=== PATIENT | female | born 1965 | race Caucasian/White ===

== ENCOUNTER → 2018-09-16 12:32 | Outpatient (CLI) | payer OTHER, SELFPAY ==
[2018-06-17 12:56] VITALS: BMI 20.1
--- NOTE | 2018-09-16 12:34 | BI_ITS ---
MAMMOGRAPHY - BILATERAL SCREENING REASON FOR EXAM: Female, 53 years old. Routine annual screening examination. PERTINENT HISTORY: Sister with breast cancer. Grandmother with breast cancer. Prior right ultrasound-guided breast biopsy. TECHNIQUE: Digital bilateral breast aditi (3D mammographic acquisition) in the CC and MLO projections. 2-D mediolateral oblique (MLO) and craniocaudad (CC) views of both breasts were obtained. CAD: Full Field Digital Mammography with Computer Added Detection was performed. COMPARISON: Comparison is made with prior study dated September 09, 2017 and prior ultrasound dated September 09, 2017. FINDINGS: Breast Composition: The breasts are heterogeneously dense, which may obscure small masses. There are no dominant masses or suspicious calcifications. A tissue clip marker is seen in the anterior mid superior portion of the right breast. Stable scattered bilateral microcalcifications. No other significant abnormalities are identified. There has been no significant change since the prior study. BI/SCREENING MAMM (CAD), BILAT IMPRESSION: Stable bilateral screening mammogram. Yearly follow-up mammogram recommended. (A) ASSESSMENT CATEGORY: BIRADS Category 2: Benign. A letter regarding these results will be sent to the patient by the facility within 30 days. Approximately 10% of breast cancers are not detected by mammography. A normal mammogram should not delay biopsy of a clinically suspicious abnormality. [id number] Electronically Signed: Milind Montanez MD at 13:25 EST Tel [phone], Service support ,
--- OUTSIDE RECORDS SUMMARY | 2018-12-18 17:38 | XMS RPT_ITS ---
:1965 Author Organization OHIP Care Team Providers Name Role Phone Lisbet TORRES (SANTOS) Attending Unavailable Lisbet TORRES (SANTOS) Referring Unavailable Lisbet TORRES (SANTOS) Attending Unavailable Gala Queen Attending Unavailable Brian Santa Primary Care Unavailable Jennifer Bee Consulting Unavailable Gala Queen Attending Unavailable Brian Santa Referring Unavailable KietBrian winn Primary Care Unavailable PROBLEMS PROBLEMS DATE TYPE CONDITION / CODE ATTENDING STATUS SOURCE 06/17/2018 Active Essential NA Active [facility] (primary) [place] hypertension / Repository I10(ICD-10) PROCEDURES PROCEDURES No Procedure Records FoundRESULTS RESULTS STEAM PRESS OPERATOR OFFICE VISIT Observed: 10/12/2018 Status: F Source: [place] RE[place] 3:02 PM [facility] [place] RE[facility]IT[facility] [address] [place] [address] OFFICE VISIT Date of Service: 06/17/18 MR#: [id number] Acct: [id number] Name: JERROD ALEMAN Rep #: [id number] : 1965 Provider: SAY Queen Age/Sex: 53/F Location[place] [facility] [place] Status: Signed with Addenda ADDENDUM by SAY Queen on 10/12/18 at 1502 Addendum entered and electronically signed by HAL Tierney 10/12/18 15:02: Rectal exam was deferred. No masses palpated Assessment AND Plan Problems 1. Encounter for gynecological examination without abnormal finding Z01.419 Plan - HAL Tierney Completed breast and pelvic exam Reviewed diet and exercise Pap 2017 Mammogram today Colonoscopy up to date RTO 1 year, prn with problems Gala Queen SEAFOOD SERVICE TEAM MEMBER 10/12/18 1502 <Electronically signed by Gala HONG> Date Gala Queen cc: * Signed Intake Vital Signs06/17/18 Height 5 ft 10 in 06/17/18 Weight: 140 lb 6 oz 06/17/18 Body Mass Index (BMI) 20.1 06/17/18 Blood Pressure 130/70 Intake Visit Reasons: ANNUAL Chief Complaint: est annual Road Engineer Required: No Is patient in pain?: No Allergies sulfamethoxazole [From Bactrim] Adverse Reaction (Verified 06/17/18 12:56) Other trimethoprim [From Bactrim] Adverse Reaction (Verified 06/17/18 12:56) Other Medications Hydrochlorothiazide [Hctz] 25 mg PO DAILY 06/21/15 [History Confirmed 06/17/18] Oxycodone HCl/Acetaminophen [Percocet 5/325] 1 - 2 tab PO Q4H PRN PRN #30 tab 06/22/15 [Rx] Is last menstrual period known: Yes Last Menstral Period: 05/23/18 Post menopausal: No Patient : No : No PFSH Medical History Hypertension (Chronic) Surgical History History of right breast biopsy (Acute) Family History Father Cancer prostate Blindness and low vision Sister Breast cancer pre breast cancer Brother Cancer Social History Smoking Status: Never smoker alcohol intake: never substance use type: does not use caffeine: No what type of physical activity do you participate in: walking seatbelt use: always do you feel safe at home: Yes additional social history: 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 DatName GA[facility]WeeksOutcome [facility] tn Unknown 1996 [facility] Unknown [facility] HPI ANNUAL: Details: JERROD ALEMAN is a 53 year old who presents for annual exam. Denies concerns Last PAP: 2017 History of abnormal PAP: no Last mammogram: 08/2017 History of abnormal mammogram: negative breast biopsy Colon cancer screenin08/2016 Negative EMB 06/2017 for menorrhagia and menses normal now. Female Reproductive History Last Menstral Period: 05/23/18 Questions: Metorrhagia: No, Sexually active: Yes, Dyspareunia: No, PCB: No ROS Const Constitutional: Denies fatigue, weight gain or weight loss Cardio Card: Denies chest pain Resp Resp: Denies cough or shortness of breath with activity GI GI: Denies abdominal pain, constipation, change in stools, vomiting or bloating : Reports as per HPI; denies urinary frequency, pelvic pain, urinary urgency, vaginal discharge, vaginal itching, urinary incontinence or difficulty urinating Exam Const General: cooperative, healthy appearing, no acute distress, well developed Orientation: alert, oriented to person, oriented to place HENOK Head: normal to inspection Neck Neck: normal visual inspection Thyroid: thyroid normal Lymphatic: no lymphadenopathy noted Chest Breast inspection: normal inspection of the breasts, normal inspection of the axillae Breast palpation: normal palpation of the breasts, normal palpation of the axillae, no axillary lymphadenopathy Resp Effort AND Inspection: normal respiratory effort GI Palpation: soft, nontender, no masses Rectal Exam: mass, deferred External Female Exam: normal external appearance, normal appearance of the urethra Urethra: normal appearance of the urethra, normal palpation Speculum Exam - Vagina: normal appearance of the vagina, normal vaginal discharge Speculum Exam - Cervix: normal appearance of the cervix Bimanual Exam- Vagina AND Uterus: normal bimanual exam, uterine size normal, uterine shape normal, uterus non-tender Bimanual Exam- Adnexa, other: normal adnexae, no adnexal masses, adnexae non-tender, pelvic support normal Pelvic Support: normal Neuro General: alert, oriented x3 Psych Affect: normal affect Assessment AND Plan Problems 1. Encounter for gynecological examination without abnormal finding Z01.419 Plan Completed breast and pelvic exam Reviewed diet and exercise Pap 2017 Mammogram today Colonoscopy up to date RTO 1 year, prn with problems Gala Queen SEAFOOD SERVICE TEAM MEMBER Coding Level of Care Code Off vis,est,prev 40-64yrs Diagnoses Encounter for gynecological examination without abnormal finding Z01.419 Gynecological examination findings: abnormal findings ABSENT 06/17/18 1616 <Electronically signed by Gala HONG> Date Gala Queen NP-C Cosigner Signature: Date (if applicable) CC: SCREENING MAMM (CAD), Observed: 09/16/2018 Status: F Source: [facility] 12:34 PM [facility] [place] REPOSITORY [facility] Imaging Services [address] [place] [id number] SCREENING MAMM (CAD), BIL MR#: [id number] Acct: [id number] Name: JERROD ALEMAN Rep #: [id number] : 1965 F 53 From: Milind Montanez MD PCP: Brian Santa MD Status: [facility] Study: SCREENING MAMM (CAD), BIL Date of Exam: 09/16/18 Exam# [id number] Ordering Dr: Gala Queen MAMMOGRAPHY - BILATERAL SCREENING REASON FOR EXAM: Female, 53 years old. Routine annual screening examination. PERTINENT HISTORY: Sister with breast cancer. Grandmother with breast cancer. Prior right ultrasound-guided breast biopsy. TECHNIQUE: Digital bilateral breast adiit (3D mammographic acquisition) in the CC and MLO projections. 2-D mediolateral oblique (MLO) and craniocaudad (CC) views of both breasts were obtained. CAD: Full Field Digital Mammography with Computer Added Detection was performed. COMPARISON: Comparison is made with prior study dated September 09, 2017 and prior ultrasound dated September 09, 2017. FINDINGS: Breast Composition: The breasts are heterogeneously dense, which may obscure small masses. There are no dominant masses or suspicious calcifications. A tissue clip marker is seen in the anterior mid superior portion of the right breast. Stable scattered bilateral microcalcifications. No other significant abnormalities are identified. There has been no significant change since the prior study. BI/SCREENING MAMM (CAD), BILAT IMPRESSION: Stable bilateral screening mammogram. Yearly follow-up mammogram recommended. (A) ASSESSMENT CATEGORY: BIRADS Category 2: Benign. A letter regarding these results will be sent to the patient by the facility within 30 days. Approximately 10% of breast cancers are not detected by mammography. A normal mammogram should not delay biopsy of a clinically suspicious abnormality. [id number] Electronically Signed: Milind Montanez MD at 13:25 EST Tel [phone], Service support , CC: SAY Queen; Brian Santa MD Cnc Field Service Engineer: Signed PROGRESS Observed: 06/23/2018 Status: COMPLETED Source: [place] 10:[address] [facility] [place] REPOSITORY O ID: [id number] Author: Lisbet Torres Service: (none) Author Type: Physician Medical Records Tech Type: Progress Notes Filed: 06/23/2018 4:46 PM Note Text: 53 year old female with c/o Follow up on BP HTN: Current meds: dyazide 37.5 Patient is compliant with meds Yes Monitors bp at home: Yes. If yes, readings: 121/74 yesterday Denies side effects: Yes. Chest pain: No. Dyspnea: No. Edema: No. Palpitations: No. Syncope: No. Headache: No. Dizziness: No. Last 3 Encounter BP Readings: Date: BP: 06/23/2018 138/86 12/11/2017 128/84[reading from BP Ruben (from Extended Vitals)[ 03/13/2017 138/78 Last 2 Encounter Wt Readings: Date: Wt: 06/23/2018 64 kg (141 lb 1.3 oz) 12/11/2017 64.9 kg (143 lb) HISTORIES FAMILY HISTORY Problem Relation Age of Onset - Hypertension Mother - Hypertension Father - Breast Cancer Paternal Grandmother - Aneurysm Maternal Grandmother - Hypertension Sister - Hypertension Brother PAST MEDICAL HISTORY Diagnosis Date - hypertension 2004 mild - Hypertension PAST SURGICAL HISTORY Procedure Laterality Date - BREAST BIOPSY Right 05/2015 - COLONOSCOP W/ OR W/O BRSH SPEC 08/29/16 Colonoscopy Social History Marital status: Spouse name: denisa Years of education: 12 Number of children: 2 Occupational History 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 Disp: 90 capsule Rfl: 1 Nonoxynol-9 (VAGINAL CONTRACEPTIVE FOAM) 12.5 % VAGINAL Foam Use vaginally. Disp: Rfl: 0 COMPOUNDED PRESCRIPTION vitamin once daily Disp: Rfl: 0 CALCIUM 600 + D 600 MG-125 UNIT TAB Take one(1) tablet two(2) times daily. Disp: otc Rfl: 0 No current facility-administered medications for this visit. BP CONTROLLED (<130/80) due on 1984 INFLUENZA(1) due on 05/30/2018 EXAM: BP 138/86 (BP Site: Right Arm, BP Position: Sitting, BP Cuff Size: Regular Adult) Pulse 62 Resp 18 Wt 64 kg (141 lb 1.3 oz) LMP 05/23/2018 BMI 19.86 kg/m? Pleasant adult woman in no acute distress. Alert and oriented all spheres. Normal affect and cognition. Speech normal. No deficits to learning or comprehension. Skin warm, dry, pink to lips and nailbeds. Normal turgor. Respirations regular and unlabored. Extrem: no clubbing, cyanosis, edema. Extremities are warm and pink with prompt capillary refill. ASSESSMENT/PLAN: 1. Essential hypertension - ICD9: 401.9, ICD10: I10 - good control - Recommended regular aerobic exercise. - Recommend home blood pressure monitoring, to bring results in on next visit - Goal of BP <130/80 - TRIAMTERENE 37.5 MG-HYDROCHLOROTHIAZIDE 25 MG CAPSULE F/u 1 year Lisbet Torres PA-C CNOV Observed: 06/23/2018 Status: COMPLETED Source: [place] 9:20 AM [facility] REPOSITORY Office Visit (FAMPWS) JERROD ALEMAN ([id number]) 1965 F Date Time Provider Department 06/23/18 9:20 AM Lisbet TORRES) FAMPWS During your visit today, we recorded the following information about you: Pulse Respiration Blood pressure Weight 62/minute 18/minute 138/86 64 kg Last Period 05/23/18 Lisbet Torres PA-C 06/23/2018 4:46 PM Signed 53 year old female with c/o Follow up on BP HTN: Current meds: dyazide 37.5 Patient is compliant with meds Yes Monitors bp at home: Yes. If yes, readings: 121/74 yesterday Denies side effects: Yes. Chest pain: No. Dyspnea: No. Edema: No. Palpitations: No. Syncope: No. Headache: No. Dizziness: No. Last 3 Encounter BP Readings: Date: BP: 06/23/2018 138/86 12/11/2017 128/84[reading from BP Ruben (from [facility] [place])[ 03/13/2017 138/78 Last 2 Encounter Wt Readings: Date: Wt: 06/23/2018 64 kg (141 lb 1.3 oz) 12/11/2017 64.9 kg (143 lb) HISTORIES FAMILY HISTORY Problem Relation Age of Onset - Hypertension Mother - Hypertension Father - Breast Cancer Paternal Grandmother - Aneurysm Maternal Grandmother - Hypertension Sister - Hypertension Brother PAST MEDICAL HISTORY Diagnosis Date - hypertension 2005 mild - Hypertension PAST SURGICAL HISTORY Procedure Laterality Date - BREAST BIOPSY Right 05/2015 - COLONOSCOP W/ OR W/O BRSH SPEC 08/29/16 Colonoscopy Social History Marital status: Spouse name: denisa Years of education: 12 Number of children: 2 Occupational History 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 Disp: 90 capsule Rfl: 1 Nonoxynol-9 (VAGINAL CONTRACEPTIVE FOAM) 12.5 % VAGINAL Foam Use vaginally. Disp: Rfl: 0 COMPOUNDED PRESCRIPTION vitamin once daily Disp: Rfl: 0 CALCIUM 600 + D 600 MG-125 UNIT TAB Take one(1) tablet two(2) times daily. Disp: otc Rfl: 0 No current facility-administered medications for this visit. BP CONTROLLED (<130/80) due on 1984 INFLUENZA(1) due on 05/30/2018 EXAM: BP 138/86 (BP Site: Right Arm, BP Position: Sitting, BP Cuff Size: Regular Adult) Pulse 62 Resp 18 Wt 64 kg (141 lb 1.3 oz) LMP 05/23/2018 BMI 19.86 kg/m? Pleasant adult woman in no acute distress. Alert and oriented all spheres. Normal affect and cognition. Speech normal. No deficits to learning or comprehension. Skin warm, dry, pink to lips and nailbeds. Normal turgor. Respirations regular and unlabored. Extrem: no clubbing, cyanosis, edema. Extremities are warm and pink with prompt capillary refill. ASSESSMENT/PLAN: 1. Essential hypertension - ICD9: 401.9, ICD10: I10 - good control - Recommended regular aerobic exercise. - Recommend home blood pressure monitoring, to bring results in on next visit - Goal of BP <130/80 - TRIAMTERENE 37.5 MG-HYDROCHLOROTHIAZIDE 25 MG CAPSULE F/u 1 year M SANTOS Parada PA-C 06/23/2018 10:53 AM Signed THE DASH DIFFERENCE High blood pressure affects 50 million Americans and is one of the leading causes or heart diseased and stroke. The eating plan shown below, from the Dietary Approaches to Stop Hypertension (DASH) study, is good news for those affected by or at risk for high blood pressure. As reported in the [place] Journal of Medicine, the DASH diet, which is low in fat and rich in low-fat milk, cheese and yogurt, fruits and vegetables, lowered blood pressure in individuals with both normal and elevated blood pressure. The use of foods lower in sodium made a slight improvement in blood pressure beyond what occurred with the low-fat dairy products, fruits and vegetables. The study was based on a 2000 calorie diet and contained the number of servings from each of the food groups shown in the chart below. For many people following the DASH eating plan can be an important and easy step in preventing or managing high blood pressure. The DASH Eating Style FOOD GROUP DAILY SERVINGS 1 SERVING EQUALS Milk and Dairy 2-3 8 oz low-fat milk 1 cup low-fat 1 ? oz low-fat cheese Fruits 4-5 1 medium fruit ? cup dried fruit ? cup frozen or canned fruit 6 oz fruit juice Vegetables 4-5 1 cup raw leafy vegetables ? cup cooked vegetables 6 oz vegetable juice Grain 7-8 1 slice bread ? cup dry or hot cereal ? cup cooked rice or pasta Meat, fish, Poultry 2 or less 3 oz cooked meat, poultry, or fish Nuts, Seeds, Dried Beans 4-5 per week 1/3 cup nuts 2 tbsp seeds ? cup cooked dried beans Sample DASH Menu Breakfast 1 cup corn flakes (with 1 tsp sugar) 8 oz low-fat milk 1 banana 1 slice whole wheat toast 1 tbsp jelly ? grapefruit Lunch 2 oz sliced turkey 1 luciana bread 1 tbsp low-fat mayonnaise ? cup fruit cocktail in light syrup Raw vegetable medley with: 3-4 sticks of each carrot and celery 2 radishes 2 loose leaf lettuce leaves Snack ? cup dried apricots ? cup mini pretzels 1/3 cup mixed nuts 1 cup flavored low-fat yogurt Dinner 3 oz grilled lean beef 1 cup scallion rice 1 cup steamed broccoli 8 oz low-fat chocolate milk Spinach salad with ? cup raw spinach 2 galvan tomatoes 2 cucumber slices 10 Ways to DASH Up Your Dining 1.) Re-think your drink! Make low-fat milk your beverage of choice: order it when dining out. 2.) Pizza, Pizza, Pizza! Combine a pre-made pizza crust with pizza sauce, shredded low-fat mozzarella and lots of vegetable toppings ? fresh tomatoes, zucchini, spinach, carrot curls, cauliflower, broccoli and artichoke hearts ? for a totally awesome creation. 3.) Start Your Day with whole grain cereal and low-fat milk. 4.) Make it with Milk! Use low-fat milk in place of water when cooking, especially with oatmeal, boxed rice and pasta dishes 5.) For That Snack Attack: Serve cereal with low-fat milk and fresh fruit. For a tangy twist, layer flavored low-fat yogurt with cereal to create yogurt sundaes. 6.) Make Super Soup! Prepare soup with low-fat milk instead of water. Add fresh, canned or frozen vegetables to prepared soups. 7.) Shake ?em Up! Create highway patrol commander drinks. Start with a cup of low-fat milk, add frozen fruit chunks and flavoring to make your own smoothie drink. 8.) Creat a Baked Potato Bar! Serve baked potatoes with a variety of toppings like low-fat cheese, chili, refried beans, salsa or broccoli. Add them up ? one meal could contain three or four vegetable servings! 9.) Encourage Big Dippers! Make a fruit dip by sprinkling cinnamon into vanilla low-fat yogurt. For a quick vegetable dip, add ranch seasoning or chopped chives to plain low-fat yogurt. 10.) Say Cheese! Top Steamed vegetables with shredded low- fat cheese. HEALTH MAINTENANCE: ? Your Body mass index is 19.86 kg/m?. (Target BMI: 19-25) ? Regular aerobic exercise, low fat diet, and periodic exams are recommended ? Living Will AND Medical Power of Manager Emergency Department recommended ? Periodic Pap smear per risk profile. ? Mammogram recommended yearly. ? Colon cancer screening by age 50 AND every 5-10 years. ? Calcium intake of 1200-1500mg elemental calcium per day and 1,000-2,000 IU of Vitamin D3/cholecalciferol daily. ? Bone mineral density (by age 65 or sooner if other risk factors for osteoporosis). IMMUNIZATIONS: ? TD at age 50 or every 10 years ? Pneumovax (between ages 50-65) ? Recommend consideration for Zostavax (shingles vaccine) in women age 60 and older. ? Yearly flu vaccine in the fall for those 50 and older LABS: ? Thyroid screening every 5 years after age 50 ? Fasting blood sugar every 3 years after age 45 ? Fasting cholesterol every five years after age 45 Referring Provider: SELF [200] Allergies As of Date: 06/23/2018 Noted Allergy Reaction BACTRIM (SULFAMETHOXAZOLE) 12/03/2009 7 - Swelling Comments: Bilateral calf pain, numbness/tingling of extremities Date Reviewed: 06/23/2018 Reviewed by: Chelsie Storey - Fully Assessed Reason for Visit: Recheck [92] Cmt: 6 month follow up- BP check Visit Diagnosis:Essential hypertension [I10] Order(s):triamterene-hydrochlorothiazide 37.5-25 mg per capsuleTake 1 capsule by mouth once daily.Disp: 90 capsuleRfl: 3 Prescriptions as of 06/23/2018 Sig: TRIAMTERENE 37.5 MG-HYDROCHLO* Take 1 capsule by mouth once * * NONOXYNOL-9 12.5 % VAGINAL FO* Use vaginally. * COMPOUNDED PRESCRIPTION vitamin once daily * CALCIUM 600 + D(3) 600 MG-125* Take one(1) tablet two(2) cori* Problem List As Of Date 06/23/2018 Noted Resolved Essential hypertension, benign [I10] INVALID FOR* More... Hypokalemia [E87.6] INVALID FOR*02/20/2017 Colon cancer screening [Z12.11] INVALID FOR*08/29/2016 Other instructions from your clinician: THE DASH DIFFERENCE High blood pressure affects 50 million Americans and is one of the leading causes or heart diseased and stroke. The eating plan shown below, from the Dietary Approaches to Stop Hypertension (DASH) study, is good news for those affected by or at risk for high blood pressure. As reported in the [place] Journal of Medicine, the DASH diet, which is low in fat and rich in low-fat milk, cheese and yogurt, fruits and vegetables, lowered blood pressure in individuals with both normal and elevated blood pressure. The use of foods lower in sodium made a slight improvement in blood pressure beyond what occurred with the low-fat dairy products, fruits and vegetables. The study was based on a 2000 calorie diet and contained the number of servings from each of the food groups shown in the chart below. For many people following the DASH eating plan can be an important and easy step in preventing or managing high blood pressure. The DASH Eating Style FOOD GROUP DAILY SERVINGS 1 SERVING EQUALS Milk and Dairy 2-3 8 oz low-fat milk 1 cup low-fat 1 ? oz low-fat cheese Fruits 4-5 1 medium fruit ? cup dried fruit ? cup frozen or canned fruit 6 oz fruit juice Vegetables 4-5 1 cup raw leafy vegetables ? cup cooked vegetables 6 oz vegetable juice Grain 7-8 1 slice bread ? cup dry or hot cereal ? cup cooked rice or pasta Meat, fish, Poultry 2 or less 3 oz cooked meat, poultry, or fish Nuts, Seeds, Dried Beans 4-5 per week 1/3 cup nuts 2 tbsp seeds ? cup cooked dried beans Sample DASH Menu Breakfast 1 cup corn flakes (with 1 tsp sugar) 8 oz low-fat milk 1 banana 1 slice whole wheat toast 1 tbsp jelly ? grapefruit Lunch 2 oz sliced turkey 1 luciana bread 1 tbsp low-fat mayonnaise ? cup fruit cocktail in light syrup Raw vegetable medley with: 3-4 sticks of each carrot and celery 2 radishes 2 loose leaf lettuce leaves Snack ? cup dried apricots ? cup mini pretzels 1/3 cup mixed nuts 1 cup flavored low-fat yogurt Dinner 3 oz grilled lean beef 1 cup scallion rice 1 cup steamed broccoli 8 oz low-fat chocolate milk Spinach salad with ? cup raw spinach 2 galvan tomatoes 2 cucumber slices 10 Ways to DASH Up Your Dining 1.) Re-think your drink! Make low-fat milk your beverage of choice: order it when dining out. 2.) Pizza, Pizza, Pizza! Combine a pre-made pizza crust with pizza sauce, shredded low-fat mozzarella and lots of vegetable toppings ? fresh tomatoes, zucchini, spinach, carrot curls, cauliflower, broccoli and artichoke hearts ? for a totally awesome creation. 3.) Start Your Day with whole grain cereal and low-fat milk. 4.) Make it with Milk! Use low-fat milk in place of water when cooking, especially with oatmeal, boxed rice and pasta dishes 5.) For That Snack Attack: Serve cereal with low-fat milk and fresh fruit. For a tangy twist, layer flavored low-fat yogurt with cereal to create yogurt sundaes. 6.) Make Super Soup! Prepare soup with low-fat milk instead of water. Add fresh, canned or frozen vegetables to prepared soups. 7.) Shake ?em Up! Create highway patrol commander drinks. Start with a cup of low-fat milk, add frozen fruit chunks and flavoring to make your own smoothie drink. 8.) Creat a Baked Potato Bar! Serve baked potatoes with a variety of toppings like low-fat cheese, chili, refried beans, salsa or broccoli. Add them up ? one meal could contain three or four vegetable servings! 9.) Encourage Big Dippers! Make a fruit dip by sprinkling cinnamon into vanilla low-fat yogurt. For a quick vegetable dip, add ranch seasoning or chopped chives to plain low-fat yogurt. 10.) Say Cheese! Top Steamed vegetables with shredded low-fat cheese. HEALTH MAINTENANCE: ? Your Body mass index is 19.86 kg/m?. (Target BMI: 19-25) ? Regular aerobic exercise, low fat diet, and periodic exams are recommended ? Living Will AND Medical Power of Manager Emergency Department recommended ? Periodic Pap smear per risk profile. ? Mammogram recommended yearly. ? Colon cancer screening by age 50 AND every 5-10 years. ? Calcium intake of 1200-1500mg elemental calcium per day and 1,000-2,000 IU of Vitamin D3/cholecalciferol daily. ? Bone mineral density (by age 65 or sooner if other risk factors for osteoporosis). IMMUNIZATIONS: ? TD at age 50 or every 10 years ? Pneumovax (between ages 50-65) ? Recommend consideration for Zostavax (shingles vaccine) in women age 60 and older. ? Yearly flu vaccine in the fall for those 50 and older LABS: ? Thyroid screening every 5 years after age 50 ? Fasting blood sugar every 3 years after age 45 ? Fasting cholesterol every five years after age 45 Prescriptions ordered this encounter Disp Refills Start End TRIAMTERENE 37.5 MG-HYDROCHLOROTHIAZ* 90 c* 3 06/23/2018 Route: ORAL Sig: Take 1 capsule by mouth once daily. Medications Discontinued During This Encounter triamterene-hydrochlorothiazide 37.5* 90 c* 1 12/11/2017 06/23/2018 Route: ORAL Sig: Take 1 capsule by mouth once daily. Disc: Reason for discontinue is not on file. Disposition: Return in about 1 year (around 06/23/2019). Follow-up and Disposition History Recorded Encounter Status:Closed by Lisbet TORRES PA-C on 06/23/18 BASIC METABOLIC PANL Collected: 06/17/2018 Status: F Source: [place] 1:[address] [facility] REPOSITORY TYPE CODE TESTS RESULT OUT OF REFERENCE UNITS RANGE LAB GLU 74-99 mg/dL High Glucose 104 Result Comment: The [place] Diabetes Association (ADA) provides guidance for cutoff values for fasting glucose and random glucose. The ADA defines fasting as no caloric intake for at least 8 hours. Fas ting plasma glucose results between 100 to 125 mg/dL indicate increased risk for diabetes (prediabetes). Fasting plasma glucose results greater than or equal to 126 mg/dL meet the criteria for diagnosis of diabetes. In the absence of unequivocal hyperglycemia, results should be confirmed by repeat testing. In a patient with classic symptoms of hyperglycemia or hyperglycemic crisis, random plasma glucose results greater than or equal to 200 mg/dL meet the criteria for diagnosis of diabetes. Reference: Standards of Medical Care in Diabetes 2016, [place] Diabetes Association. Diabetes Care. 2016.39(Suppl 1). LAB BUN 7-21 mg/dL BUN 20 LAB CRET 0.58-0.96 mg/dL Creatinine 0.84 LAB NA 136-144 mmol/L Sodium 140 LAB K 3.7-5.1 mmol/L Potassium 3.8 LAB CL 97-105 mmol/L Chloride 99 LAB CO2 22-30 mmol/L CO2 28 LAB AGAP 9-18 mmol/L Anion Gap 13 LAB CA 8.5-10.2 mg/dL Calcium, Total 9.8 LAB GFRAA eGFR- Amer. >60 LAB GFRNAA . eGFR-All Other Races >60 Result Comment: eGFR (Estimated GFR) Units of measure: mL/min/1.73 meters squared eGFR is derived from the reexpressed MDRD Study equation using the following parameters: serum creatinine, age, gender and race. The creatinine assay has been calibrated to be traceable to IDMS. An eGFR <60 mL/min/1.73m2 for >3 months is consistent with chronic kidney disease. Refer to KDOQI guidelines for clinical interpretation. In patients with unstable renal function, e.g. those with acute kidney injury, the eGFR may not accurately reflect actual GFR. Performed By: #### BMP #### [facility] [address] [place], [place] [address] PROGRESS Observed: 12/11/2017 Status: COMPLETED Source: [place] 10:[address] [facility] REPOSITORY HNO ID: [id number] Author: Lisbet Barkley (Santos) Brian Service: (none) Author Type: Physician Medical Records Tech Type: Progress Notes Filed: 12/11/2017 11:13 AM Note Text: 52 year old female with c/o follow up on BP HTN: Current meds: Triamterene/ HCTZ Patient is compliant with meds Yes Monitors bp at home: Yes. If yes, readings: BP low at home 111-145/ 65-87. Most frequent in 120/80 or below range. Denies side effects: No. Chest pain: No. Dyspnea: No. Edema: No. Palpitations: No. Syncope: No. Headache: No. Dizziness: No. Last 3 Encounter BP Readings: Date: BP: 12/11/2017 142/86 03/13/2017 138/78 03/05/2017 158/76 Last 2 Encounter Wt Readings: Date: Wt: 12/11/2017 64.9 kg (143 lb) 03/13/2017 65.3 kg (144 lb) HISTORIES FAMILY HISTORY Problem Relation Age of Onset - Hypertension Mother - Hypertension Father - Breast Cancer Paternal Grandmother - Aneurysm Maternal Grandmother - Hypertension Sister - Hypertension Brother PAST MEDICAL HISTORY Diagnosis Date - hypertension 2005 mild - Hypertension PAST SURGICAL HISTORY Procedure Laterality Date - BREAST BIOPSY Right 05/2015 - COLONOSCOP W/ OR W/O [facility] SPEC 08/29/16 Colonoscopy Social History Marital status: Spouse name: denisa Years of education: 12 Number of children: 2 Occupational History 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 Disp: Rfl: 0 CALCIUM 600 + D 600 MG-125 UNIT TAB Take one(1) tablet two(2) times daily. Disp: otc Rfl: 0 COMPOUNDED PRESCRIPTION vitamin once daily Disp: Rfl: 0 No current facility-administered medications for this visit. INFLUENZA(1) due on 05/30/2017 EXAM: BP 135/87 Pulse 80 Temp 36.5 ?C (97.7 ?F) (Tympanic) Resp 16 Wt 64.9 kg (143 lb) LMP 11/08/2017 (Approximate) BMI 20.13 kg/m2 Pleasant adult woman in no acute distress. Alert and oriented all spheres. Normal affect and cognition. Speech normal. No deficits to learning or comprehension. Skin warm, dry, pink to lips and nailbeds. Normal turgor. Respirations regular and unlabored. Extrem: no clubbing, cyanosis, edema. Extremities are warm and pink with prompt capillary refill. ASSESSMENT/PLAN: 1. Essential hypertension - ICD9: 401.9, ICD10: I10 - good control - Recommended regular aerobic exercise. - Recommend home blood pressure monitoring, to bring results in on next visit - Goal of BP <130/80 - TRIAMTERENE 37.5 MG-HYDROCHLOROTHIAZIDE 25 MG CAPSULE - BASIC METABOLIC PNL Lisbet Torres PA-C CNOV Observed: 12/11/2017 Status: COMPLETED Source: [place] 10:40 AM [facility] REPOSITORY Office Visit (FAMPWS) JERROD ALEMAN ([id number]) 1965 F Date Time Provider Department 12/11/17 10:40 AM Lisbet TORRES) FAMPWS During your visit today, we recorded the following information about you: Temperature Pulse Respiration Blood pressure 97.7 degrees 80/minute 16/minute 135/87 Weight Last Period 64.9 kg 11/08/17 Lisbet Torres PA-C 12/11/2017 11:13 AM Signed 52 year old female with c/o follow up on BP HTN: Current meds: Triamterene/ HCTZ Patient is compliant with meds Yes Monitors bp at home: Yes. If yes, readings: BP low at home 111-145/ 65-87. Most frequent in 120/80 or below range. Denies side effects: No. Chest pain: No. Dyspnea: No. Edema: No. Palpitations: No. Syncope: No. Headache: No. Dizziness: No. Last 3 Encounter BP Readings: Date: BP: 12/11/2017 142/86 03/13/2017 138/78 03/05/2017 158/76 Last 2 Encounter Wt Readings: Date: Wt: 12/11/2017 64.9 kg (143 lb) 03/13/2017 65.3 kg (144 lb) HISTORIES FAMILY HISTORY Problem Relation Age of Onset - Hypertension Mother - Hypertension Father - Breast Cancer Paternal Grandmother - Aneurysm Maternal Grandmother - Hypertension Sister - Hypertension Brother PAST MEDICAL HISTORY Diagnosis Date - hypertension 2005 mild - Hypertension PAST SURGICAL HISTORY Procedure Laterality Date - BREAST BIOPSY Right 05/2015 - COLONOSCOP W/ OR W/O [facility] SPEC 08/29/16 Colonoscopy Social History Marital status: Spouse name: denisa Years of education: 12 Number of children: 2 Occupational History 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 Disp: Rfl: 0 CALCIUM 600 + D 600 MG-125 UNIT TAB Take one(1) tablet two(2) times daily. Disp: otc Rfl: 0 COMPOUNDED PRESCRIPTION vitamin once daily Disp: Rfl: 0 No current facility-administered medications for this visit. INFLUENZA(1) due on 05/30/2017 EXAM: BP 135/87 Pulse 80 Temp 36.5 ?C (97.7 ?F) (Tympanic) Resp 16 Wt 64.9 kg (143 lb) LMP 11/08/2017 (Approximate) BMI 20.13 kg/m2 Pleasant adult woman in no acute distress. Alert and oriented all spheres. Normal affect and cognition. Speech normal. No deficits to learning or comprehension. Skin warm, dry, pink to lips and nailbeds. Normal turgor. Respirations regular and unlabored. Extrem: no clubbing, cyanosis, edema. Extremities are warm and pink with prompt capillary refill. ASSESSMENT/PLAN: 1. Essential hypertension - ICD9: 401.9, ICD10: I10 - good control - Recommended regular aerobic exercise. - Recommend home blood pressure monitoring, to bring results in on next visit - Goal of BP ANDlt;130/80 - TRIAMTERENE 37.5 MG-HYDROCHLOROTHIAZIDE 25 MG CAPSULE - BASIC METABOLIC PNL M Filippo Torres PA-C Referring Provider: SELF [200] Allergies As of Date: 12/11/2017 Noted Allergy Reaction BACTRIM (SULFAMETHOXAZOLE) 12/03/2009 7 - Swelling Comments: Bilateral calf pain, numbness/tingling of extremities Date Reviewed: 12/11/2017 Reviewed by: Pia Sanabria LPN - Fully Assessed Reason for Visit: Blood Pressure [15] Primary Visit Diagnosis:Essential hypertension [I10] Other Visit Diagnosis:Essential hypertension, benign [I10] Order(s):triamterene-hydrochlorothiazide 37.5-25 mg per capsuleTake 1 capsule by mouth once daily.Disp: 90 capsuleRfl: 1 BASIC METABOLIC PNL [SQBMP] Order #: [id number] FUTURE Prescriptions as of 12/11/2017 Sig: TRIAMTERENE 37.5 MG-HYDROCHLO* Take 1 capsule by mouth once * * NONOXYNOL-9 12.5 % VAGINAL FO* Use vaginally. * CALCIUM 600 + D(3) 600 MG-125* Take one(1) tablet two(2) cori* * COMPOUNDED PRESCRIPTION vitamin once daily Problem List As Of Date 12/11/2017 Noted Resolved Essential hypertension, benign [I10] INVALID FOR* More... Hypokalemia [E87.6] INVALID FOR*02/20/2017 Colon cancer screening [Z12.11] INVALID FOR*08/29/2016 Prescriptions ordered this encounter Disp Refills Start End TRIAMTERENE 37.5 MG-HYDROCHLOROTHIAZ* 90 c* 1 12/11/2017 Route: ORAL Sig: Take 1 capsule by mouth once daily. Medications Discontinued During This Encounter triamterene-hydrochlorothiazide 37.5* 90 c* 0 09/10/2017 12/11/2017 Sig: TAKE 1 CAPSULE ONCE DAILY Disc: Reason for discontinue is not on file. Disposition: Return in about 6 months (around 06/13/2018). Follow-up and Disposition History Recorded Classic SmartForms filed during this visit: Material Wrlds Encounter Status:Closed by Lisbet TORRES PA-C on 12/11/17 ALLERGIES ALLERGIES DATE TYPE / NAME / CODE REACTION SEVERITY SOURCE CODE 06/17/2018 Drug sulfamethoxazole/F0060 Other Unknown [place] Allergy/41 00609(RXNORM) [facility]ly [facility] [id number]([facility]) Repository 06/17/2018 Drug trimethoprim/[id number] Other Unknown [place] Allergy/41 3(RXNORM) Formerly [facility] [id number]([facility]) Repository 12/03/2009 DRUG SULFAMETHOXAZOLE Critical access hospital INGREDI/41 [facility] [id number]([facility]) Repository ENCOUNTERS ENCOUNTERS ADMIT/DISCHARGE ACCOUNT ADMITTING ENCOUNTER LOCATION SOURCE NUMBER CLASS 09/16/2018 [id number] Ambulatory [facility] ing:OPBI Repository 06/23/2018/06/24/20 [id number] Ambulatory [address] Repository 06/17/2018/06/17/20 [id number] Ambulatory [address] Repository 06/17/2018/06/17/20 [id number] Ambulatory BMSBuilding:B [address] Repository 12/11/2017/12/13/19 [id number] Ambulatory [address] Repository PAYERS PAYERS ENCOUNTER GUARANTOR PAYER SUBSCRIBER SOURCE 09/16/2018 DENISA Jauregui Primary DENISA S [place] [id number] W Insurance:MEDICAL WINKLERDOB: [facility] [id number] Number: Repository [id number]: 419 [id number] [phone] () Date:[id number] [address] [place] [id number]: 09/16/2018 Secondary NOT GIVENUNK [place] Insurance:SELF PAY [facility] Number: Effective Repository Date:2018-05-11 06/17/2018 DENISA S Primary DENISA S [place] [id number] W Insurance:[facility] [id number] Number: Repository [address]Qbe: [phone] [id number] [phone] () Date:[id number] [address] [place] [id number]: 06/17/2018 Secondary NOT GIVENUNK [place] Insurance:SELF PAY [facility] Number: Effective Repository Date:2018-06-17
== END ==
PROVIDERS: Family Provider Family Medicine; PCP Family Medicine; Visit Provider Nurse Practitioner Women's Health
DX: Z12.31 Encounter for screening mammogram for malignant neoplasm of breast (principal)
CPT/HCPCS: 77063; 77067

== ENCOUNTER → 2019-09-17 09:39 | Outpatient (CLI) | payer OTHER, SELFPAY ==
[2019-06-23 13:02] VITALS: BMI 20.1
--- NOTE | 2019-09-17 09:52 | BI_ITS ---
MAMMOGRAPHY - BILATERAL SCREENING REASON FOR EXAM: Female, 54 years old. Routine annual screening examination. PERTINENT HISTORY: Sister with breast cancer. Grandmother with breast cancer. Prior right excisional breast biopsy and right ultrasound-guided breast biopsy. History of fibroadenoma. TECHNIQUE: Digital bilateral breast judson (3D mammographic acquisition) in the CC and MLO projections. 2-D mediolateral oblique (MLO) and craniocaudad (CC) views of both breasts were obtained. CAD: Full Field Digital Mammography with Computer Added Detection was performed. COMPARISON: Comparison is made with prior study dated September 16, 2018 and September 09, 2017. FINDINGS: Breast Composition: The breasts are heterogeneously dense, which may obscure small masses. There are no dominant masses or suspicious calcifications. A tissue clip marker clip is once again seen in the anterior mid superior portion of the right breast. Stable bilateral calcifications. No focal cluster is seen. No other significant abnormalities are identified. There has been no significant change since the prior study. BI/SCREEN MAMM (CAD) W/JUDSON BILAT IMPRESSION: Stable bilateral screening mammogram. Yearly follow-up mammogram recommended. (A) ASSESSMENT CATEGORY: BIRADS Category 2: Benign. A letter regarding these results will be sent to the patient by the facility within 30 days. Approximately 10% of breast cancers are not detected by mammography. A normal mammogram should not delay biopsy of a clinically suspicious abnormality. [id number] Electronically Signed: Milind Montanez, at 10:41 EST , Service support ,
== END ==
PROVIDERS: Family Provider Family Medicine; PCP Family Medicine; Referring Provider Nurse Practitioner Women's Health; Visit Provider Nurse Practitioner Women's Health
DX: Z12.31 Encounter for screening mammogram for malignant neoplasm of breast (principal)
CPT/HCPCS: 77063; 77067

== ENCOUNTER → 2020-06-26 | Outpatient (CLI) | payer OTHER, SELFPAY ==
[2020-06-26 13:13] VITALS: BMI 20.1
[2020-06-30 04:41] LABS: HPV APTIMA, High Risk Negative (Negative)
== END | disposition home or self-care (01) ==
LOC: LABSPEC 14:26
PROVIDERS: PCP Family Medicine; Referring Provider Nurse Practitioner Women's Health; Visit Provider Nurse Practitioner Women's Health
DX: Z12.4 Encounter for screening for malignant neoplasm of cervix (principal)
CPT/HCPCS: 87624; 88175; G0145

== ENCOUNTER → 2020-07-13 17:32 | Outpatient (CLI) | payer OTHER, SELFPAY ==
[2020-06-26 13:13] VITALS: BMI 20.1
== END ==
PROVIDERS: PCP Family Medicine; Referring Provider Nurse Practitioner Family; Visit Provider Nurse Practitioner Family
DX: Z20.828 Contact with and (suspected) exposure to other viral communicable diseases (principal)
CPT/HCPCS: 87635; C9803; U0003

== ENCOUNTER → 2020-09-18 13:57 | Outpatient (CLI) | payer OTHER, SELFPAY ==
[2020-06-26 13:13] VITALS: BMI 20.1
--- NOTE | 2020-09-18 14:00 | BI_ITS ---
MAMMOGRAPHY - BILATERAL SCREENING REASON FOR EXAM: Female, 55 years old. Routine annual screening examination. PERTINENT HISTORY: Personal history of breast cancer. Grandmother with breast cancer. TECHNIQUE: Digital bilateral breast judson (3D mammographic acquisition) in the CC and MLO projections. 2-D mediolateral oblique (MLO) and craniocaudad (CC) views of both breasts were obtained. CAD: Full Field Digital Mammography with Computer Added Detection was performed. COMPARISON: Comparison is made with prior study dated 09/17/2019 and 09/16/2018. FINDINGS: Breast Composition: The breasts are heterogeneously dense, which may obscure small masses. There are no dominant masses or suspicious calcifications. No other significant abnormalities are identified. There has been no significant change since the prior study. BI/SCREEN MAMM (CAD) W/JUDSON BILAT IMPRESSION: Stable bilateral screening mammogram. Yearly follow-up mammogram recommended. (A) ASSESSMENT CATEGORY: BIRADS Category 1: Negative. A letter regarding these results will be sent to the patient by the facility within 30 days. Approximately 10% of breast cancers are not detected by mammography. A normal mammogram should not delay biopsy of a clinically suspicious abnormality. [id number] Electronically Signed: Milind Montanez, at 14:30 EST , Service support ,
== END ==
PROVIDERS: PCP Family Medicine; Referring Provider Nurse Practitioner Women's Health; Visit Provider Nurse Practitioner Women's Health
DX: Z12.31 Encounter for screening mammogram for malignant neoplasm of breast (principal)
CPT/HCPCS: 77063; 77067

== ENCOUNTER → 2021-09-18 09:50 | Outpatient (CLI) | payer OTHER, SELFPAY ==
--- NOTE | 2021-09-18 09:52 | BI_ITS ---
MAMMOGRAPHY - BILATERAL SCREENING REASON FOR EXAM: Female, 56 years old. Routine annual screening examination. PERTINENT HISTORY: Sister with breast cancer. Grandmother with breast cancer. History of prior right excisional breast biopsy and right ultrasound-guided breast biopsy. TECHNIQUE: Digital bilateral breast judson (3D mammographic acquisition) in the CC and MLO projections. 2-D mediolateral oblique (MLO) and craniocaudad (CC) views of both breasts were obtained. CAD: Full Field Digital Mammography with Computer Added Detection was performed. COMPARISON: Comparison is made with prior study dated 09/18/2020 and 09/17/2019. FINDINGS: Breast Composition: The breasts are heterogeneously dense, which may obscure small masses. There are no dominant masses or suspicious calcifications. A tissue clip marker is once again seen in the slightly upper mid depth retroareolar region of the right breast. No other significant abnormalities are identified. There has been no significant change since the prior study. BI/SCRN MAMM (CAD)W/JUDSON BILAT IMPRESSION: Stable bilateral screening mammogram. Yearly follow-up mammogram recommended. (A) ASSESSMENT CATEGORY: BIRADS Category 2: Benign. A letter regarding these results will be sent to the patient by the facility within 30 days. Approximately 10% of breast cancers are not detected by mammography. A normal mammogram should not delay biopsy of a clinically suspicious abnormality. [id number] Electronically Signed: Milind Montanez MD at 11:27 EST , Service support ,
== END ==
PROVIDERS: PCP Family Medicine; Referring Provider Nurse Practitioner Women's Health; Visit Provider Nurse Practitioner Women's Health
DX: Z12.31 Encounter for screening mammogram for malignant neoplasm of breast (principal)
CPT/HCPCS: 77063; 77067

== ENCOUNTER → 2022-07-08 | Outpatient (CLI) | payer OTHER, SELFPAY ==
[2022-07-08 12:58] LABS: NATERA MAILED SPECIMEN
== END | disposition home or self-care (01) ==
LOC: PAVLAB 10:09
PROVIDERS: PCP Family Medicine; Referring Provider Nurse Practitioner Women's Health; Visit Provider Nurse Practitioner Women's Health
DX: Z80.3 Family history of malignant neoplasm of breast (principal); Z80.42 Family history of malignant neoplasm of prostate
CPT/HCPCS: 36415

== ENCOUNTER → 2022-09-19 | Outpatient (CLI) | payer OTHER, SELFPAY ==
--- NOTE | 2022-09-19 10:36 | BI_ITS ---
MAMMOGRAPHY - BILATERAL SCREENING REASON FOR EXAM: Female, 57 years old. Routine annual screening examination. PERTINENT HISTORY: Sister with breast cancer. Grandmother with breast cancer. Prior right excisional breast biopsy and ultrasound-guided breast biopsy. TECHNIQUE: Digital bilateral breast judson (3D mammographic acquisition) in the CC and MLO projections. 2-D mediolateral oblique (MLO) and craniocaudad (CC) views of both breasts were obtained. CAD: Full Field Digital Mammography with Computer Added Detection was performed. COMPARISON: Comparison is made with prior study dated 09/18/2021 and 09/18/2020. FINDINGS: Breast Composition: The breasts are heterogeneously dense, which may obscure small masses. There are no dominant masses or suspicious calcifications. A tissue clip marker is once again seen in the upper anterior central portion of the right breast. No other significant abnormalities are identified. There has been no significant change since the prior study. BI/SCRN MAMM (CAD)W/JUDSON BILAT IMPRESSION: Stable bilateral screening mammogram. Yearly follow-up mammogram recommended. (A) ASSESSMENT CATEGORY: BIRADS Category 2: Benign. A letter regarding these results will be sent to the patient by the facility within 30 days. Approximately 10% of breast cancers are not detected by mammography. A normal mammogram should not delay biopsy of a clinically suspicious abnormality. [id number] Electronically Signed: Milind Montanez MD at 12:37 EST ,
== END | disposition home or self-care (01) ==
LOC: OPBI 10:36
PROVIDERS: PCP Family Medicine; Referring Provider Nurse Practitioner Women's Health; Visit Provider Nurse Practitioner Women's Health
DX: Z12.31 Encounter for screening mammogram for malignant neoplasm of breast (principal); Z80.3 Family history of malignant neoplasm of breast
CPT/HCPCS: 77063; 77067

== ENCOUNTER → 2023-09-23 | Outpatient (CLI) | payer OTHER, SELFPAY ==
--- NOTE | 2023-09-23 09:32 | BI_ITS ---
MAMMOGRAPHY - BILATERAL SCREENING 3-D TOMOSYNTHESIS REASON FOR EXAM: Female, 58 years old. Routine screening PERTINENT HISTORY: Grandmother and sister with breast cancer. TECHNIQUE: 2-D mammograms and 3-D Tomosynthesis of the breast (s) were performed. CAD was performed. COMPARISON: 2021, 2020 FINDINGS: The breast composition is heterogeneously dense that can obscure small breast masses. Scattered benign calcifications are seen. No dense spiculated masses or suspicious microcalcifications are identified. No architectural distortion is identified. There is no skin thickening or retraction. Stable punctate calcifications in both breasts. There has been no significant change since the prior study. BI/SCRN MAMM (CAD)W/JUDSON BILAT IMPRESSION: No mammographic signs of malignancy. Routine yearly mammograms recommended. ASSESSMENT CATEGORY: BIRADS Category 2: Benign. A letter regarding these results will be sent to the patient by the facility within 30 days. FOLLOW UP RECOMMENDATION: Yearly follow up mammogram recommended. (A) Approximately 10% of breast cancers are not detected by mammography. A normal mammogram should not delay biopsy of a clinically suspicious abnormality. Electronically Signed: Devin Yuen MD at 9:38 EST ,
== END | disposition home or self-care (01) ==
LOC: OPBI 09:32
PROVIDERS: PCP Family Medicine; Referring Provider Nurse Practitioner Women's Health; Visit Provider Nurse Practitioner Women's Health
DX: Z12.31 Encounter for screening mammogram for malignant neoplasm of breast (principal)
CPT/HCPCS: 77063; 77067

== ENCOUNTER → 2024-09-24 | Outpatient (CLI) | payer OTHER, SELFPAY ==
--- NOTE | 2024-09-24 09:58 | BI_ITS ---
MAMMOGRAPHY - BILATERAL SCREENING 3-D TOMOSYNTHESIS REASON FOR EXAM: Female, 59 years old. Screening for breast cancer PERTINENT HISTORY: No significant family history. TECHNIQUE: 2-D mammograms and 3-D Tomosynthesis of the breast (s) were performed. CAD was performed. COMPARISON: 09/23/2023 FINDINGS: The breast composition is heterogeneously dense that can obscure small breast masses. Scattered benign calcifications are seen. No dense spiculated masses or suspicious microcalcifications are identified. No architectural distortion is identified. There is no skin thickening or retraction. There has been no significant change since the prior study. BI/SCRN MAMM (CAD)W/JUDSON BILAT IMPRESSION: No mammographic signs of malignancy. Routine yearly mammograms recommended. ASSESSMENT CATEGORY: BIRADS Category 1: Negative. A letter regarding these results will be sent to the patient by the facility within 30 days. FOLLOW UP RECOMMENDATION: Yearly follow up mammogram recommended. (A) Approximately 10% of breast cancers are not detected by mammography. A normal mammogram should not delay biopsy of a clinically suspicious abnormality. Electronically Signed: Robert De Los Santos MD at 19:47 EST ,
== END | disposition home or self-care (01) ==
LOC: OPBI 09:57
PROVIDERS: PCP Family Medicine; Referring Provider Nurse Practitioner Women's Health; Visit Provider Nurse Practitioner Women's Health
DX: Z12.31 Encounter for screening mammogram for malignant neoplasm of breast (principal)
CPT/HCPCS: 77063; 77067

== ENCOUNTER → 2025-07-25 | Outpatient (CLI) | payer OTHER, SELFPAY ==
[2025-07-29 13:09] LABS: HPV APTIMA, High Risk Negative (Negative)
== END | disposition home or self-care (01) ==
LOC: LABSPEC 16:21
PROVIDERS: PCP Family Medicine; Visit Provider Nurse Practitioner Women's Health
DX: Z12.4 Encounter for screening for malignant neoplasm of cervix (principal)
CPT/HCPCS: 87624; 88175; G0145

== ENCOUNTER → 2025-09-27 | Outpatient (CLI) | payer OTHER, SELFPAY ==
--- NOTE | 2025-09-27 10:15 | BI_ITS ---
EXAM: SCRN MAMM (CAD)W/JUDSON BILAT DATE: 09/27/2025 CLINICAL HISTORY: F, Age 60 y/o , SCREENING FOR BREAST CANCER Routine screening TECHNIQUE: Procedure Code: [id number] Modality: MG Procedure: SCRN MAMM (CAD)W/JUDSON BILAT COMPARISON: Prior exam(s) dated 09/24/2024. FINDINGS: TISSUE DENSITY: The breasts are heterogeneously dense, which may obscure small masses. Bilateral Breast Mammographic Findings: No significant masses, calcifications or other abnormalities are identified. Stable scattered punctate calcifications in both breasts BI/SCRN MAMM (CAD)W/JUDSON BILAT IMPRESSION: Stable screening mammogram, no suspicious findings OVERALL FINAL ASSESSMENT BI-RADS 2: BENIGN RECOMMENDATION: Routine annual follow-up in 1 Year Additional Recommendation none A letter with findings and recommendations will be mailed to the patient. Reading Location: [id number]
== END | disposition home or self-care (01) ==
PROVIDERS: PCP Family Medicine; Referring Provider Nurse Practitioner Women's Health; Visit Provider Nurse Practitioner Women's Health
DX: Z12.31 Encounter for screening mammogram for malignant neoplasm of breast (principal)
CPT/HCPCS: 77063; 77067